=== PATIENT | male | born 2000 ===

== ENCOUNTER 2025-01-11 21:48 | Emergency (ER) | payer SELFPAY ==
[~2025-01-11] VITALS: Ht 172.7 cm; Wt 68.2 kg
[2025-01-11 23:36] VITALS: TEMP 97.9
[2025-01-12 02:05] VITALS: BP 124/71; PULSE 72; RESP 12; O2SAT 99
== END 2025-01-12 03:11 | disposition home or self-care (01) ==
LOC: EMS 21:48
DX: F41.9 Anxiety disorder, unspecified (principal); Z59.00 Homelessness unspecified
CPT/HCPCS: 99283; Z7502